=== PATIENT | male | born 1945 | race Caucasian/White ===

== ENCOUNTER 2017-02-06 22:36 | Observation (INO) | payer MEDICARE, OTHER ==
[~2017-02-06] VITALS: Ht 185.4 cm; Wt 105.5 kg
[~2017-02-06 22:36] MED LIST: LISI-363 PO; RAPA8CAP PO
[2017-02-06 22:41] VITALS: BP 192/119; PULSE 92; RESP 20; TEMP 97.8; O2SAT 95
--- NOTE | 2017-02-06 23:29 | PD ---
HPI Chief Complaint: Complaint Time Seen by Provider: 23:13 Travel History International Travel<30 days: Yes Contact w/Intl Traveler<30days: Yes Name of Country Traveled to: [place] Traveled to known affect area: No History of Present Illness HPI Patient is a 71-year-old man who had retrograde cystoscopy done Friday which is 4 days ago and today he started having bleeding. Patient said he had retrograde cystoscopy because he had a little bit of bleeding a few days before and saw his doctor urologist. He had urine which was normal until this morning that was slightly red colored than it was clear that it was regular and then tonight it got severely dark red purple blood colored .. Patient comes in without complaint of abdominal pain without any dysuria just the blood colored urine. He feels a little bit more increased urgency to go. No flank pain no fevers no chills ..He has not seen his urologist for this bleeding episode. He is scheduled to have her TURPs procedure on the day after which is 4 days from today. In the ER he is not having any orthopnea, he is not short of breath, he is not dizzy and his vitals are within normal limits.No signs or symptoms of severe intravascular depletion nor anemia PFSH Past Medical History Diminished Hearing: No Genitourinary: Yes Hypertension: Yes Tetanus Vaccination: < 5 Years Influenza Vaccination: No Past Surgical History Genitourinary Surgery: Yes (PROSTATE SURGERY ) Social History Alcohol Use: No Tobacco Use: No Substance Use: No Allergies-Medications (Allergen,Severity, Reaction): Coded Allergies: penicillin G (Unverified Allergy, Mild, HIVES, 02/06/17) Reported Meds & Prescriptions Reported Meds & Active Scripts Active Levaquin (Levofloxacin) 500 Mg Tablet 500 Mg PO DAILY 5 Days Amlodipine (Amlodipine Besylate) 5 Mg Tab 5 Mg PO DAILY Hold if systolic BP < 110 Review of Systems Except as stated in HPI: all other systems reviewed are Neg Genitourinary: Positive: Urgency, Hematuria Physical Exam Narrative GENERAL: non toxic normal vitals not orthostatic not pale SKIN: Warm and dry. HEAD: Atraumatic. Normocephalic. EYES: Pupils equal and round. No scleral icterus. No injection or drainage. ENT: No nasal bleeding or discharge. Mucous membranes pink and moist. NECK: Trachea midline. No JVD. CARDIOVASCULAR: Regular rate and rhythm. RESPIRATORY: No accessory muscle use. Clear to auscultation. Breath sounds equal bilaterally. GASTROINTESTINAL: Abdomen soft, slight distended suprapubic but denies pain, ( feeling of need to urinate) non-tender, Hepatic and splenic margins not palpable. MUSCULOSKELETAL: Extremities without clubbing, cyanosis, or edema. No obvious deformities. NEUROLOGICAL: Awake and alert. No obvious cranial nerve deficits. Motor grossly within normal limits. Five out of 5 muscle strength in the arms and legs. Normal speech. PSYCHIATRIC: Appropriate mood and affect; insight and judgment normal. Data Data Last Documented VS Vital Signs Date Time Temp Pulse Resp B/P (MAP) Pulse Ox O2 Delivery O2 Flow Rate FiO2 02/07/17 04:44 72 18 144/83 (103) 95 Room Air 02/06/17 22:41 97.8 Orders Orders Urinalysis - C+S If Indicated (02/06/17 23:13) Complete Blood Count With Diff (02/06/17 23:19) Comprehensive Metabolic Panel (02/06/17 23:19) Prothrombin Time / Inr (Pt) (02/06/17 23:19) Lipase (02/06/17 23:19) Type And Screen (02/06/17 23:19) Urine Culture (02/06/17 23:10) Ceftriaxone Inj (Rocephin Inj) (02/07/17 00:00) Sodium Chlor 0.9% 1000 Ml Inj (Ns 1000 M (02/07/17 01:15) Complete Blood Count With Diff (02/07/17 02:26) Lidocaine 2% Jelly (Xylocaine 2% Jelly) (02/07/17 04:30) Bladder/Catheter Irrigation (02/07/17 04:26) Bladder/Catheter Irrigation (02/07/17 04:43) Urinary Catheter Management SHARONA.Q8H (02/07/17 04:48) Ceftriaxone Inj (Rocephin Inj) (02/07/17 23:00) Place In Observation (02/07/17 ) Vital Signs (Adult) Q4H (02/07/17 04:52) Activity Oob With Assistance (02/07/17 04:52) Intake + Output SHARONA.QSHIFT (02/07/17 04:52) Diet Regular Basic (02/07/17 Breakfast) Sodium Chlor 0.9% 1000 Ml Inj (Ns 1000 M (02/07/17 04:52) Sodium Chloride 0.9% Flush (Ns Flush) (02/07/17 05:00) Sodium Chloride 0.9% Flush (Ns Flush) (02/07/17 09:00) Ondansetron Inj (Zofran Inj) (02/07/17 05:00) Pharmacologic Contraindication (02/07/17 04:52) Acetaminophen (Tylenol) (02/07/17 05:00) Acetamin-Hydrocod 325-5 Mg ([place] 5-325 (02/07/17 05:00) Docusate Sodium-Senna (Andra-Colace) (02/07/17 09:00) Magnesium Hydroxide Liq (Milk Of Magnesi (02/07/17 05:00) Sennosides (Senokot) (02/07/17 05:00) Bisacodyl Supp (Dulcolax Supp) (02/07/17 05:00) Lactulose Liq (Lactulose Liq) (02/07/17 05:00) Consult Urology (02/07/17 ) Labs Laboratory Tests Test 02/06/17 23:10 02/06/17 23:25 02/07/17 02:20 Urine Color RED Urine Turbidity CLOUDY Urine pH 7.5 Urine Specific [place] 1.027 Urine Protein 300 OR GREATER mg/dL Urine Glucose (UA) 100 mg/dL Urine Ketones 40 mg/dL Urine Occult Blood LARGE Urine Nitrite POS Urine Bilirubin NEG Urine Leukocyte Esterase LARGE Urine RBC INNUM /hpf Urine WBC 9-14 /hpf Urine Squamous Epithelial Cells 0-5 /hpf Urine Bacteria NONE /hpf Microscopic Urinalysis Comment CULTURE INDICATED White Blood Count 8.7 TH/MM3 8.7 TH/MM3 Red Blood Count 5.19 MIL/MM3 4.77 MIL/MM3 Hemoglobin 15.1 GM/DL 14.1 GM/DL Hematocrit 46.7 % 43.0 % Mean Corpuscular Volume 89.9 FL 90.2 FL Mean Corpuscular Hemoglobin 29.2 PG 29.6 PG Mean Corpuscular Hemoglobin Concent 32.4 % 32.8 % Red Cell Distribution Width 11.7 % 11.6 % Platelet Count 292 TH/MM3 243 TH/MM3 Mean Platelet Volume 7.8 FL 8.1 FL Neutrophils (%) (Auto) 63.9 % 76.7 % Lymphocytes (%) (Auto) 22.4 % 15.1 % Monocytes (%) (Auto) 7.2 % 5.5 % Eosinophils (%) (Auto) 3.7 % 1.9 % Basophils (%) (Auto) 2.8 % 0.8 % Neutrophils # (Auto) 5.7 TH/MM3 6.6 TH/MM3 Lymphocytes # (Auto) 1.9 TH/MM3 1.3 TH/MM3 Monocytes # (Auto) 0.6 TH/MM3 0.5 TH/MM3 Eosinophils # (Auto) 0.3 TH/MM3 0.2 TH/MM3 Basophils # (Auto) 0.2 TH/MM3 0.1 TH/MM3 CBC Comment DIFF FINAL DIFF FINAL Differential Comment Prothrombin Time 10.8 SEC Prothromb Time International Ratio 1.1 RATIO Blood Urea Nitrogen 17 MG/DL Creatinine 1.40 MG/DL Random Glucose 155 MG/DL Total Protein 7.5 GM/DL Albumin 3.8 GM/DL Calcium Level 10.3 MG/DL Alkaline Phosphatase 73 U/L Aspartate Amino Transf (AST/SGOT) 31 U/L Alanine Aminotransferase (ALT/SGPT) 29 U/L Total Bilirubin 0.5 MG/DL Sodium Level 136 MEQ/L Potassium Level 3.7 MEQ/L Chloride Level 102 MEQ/L Carbon Dioxide Level 25.8 MEQ/L Anion Gap 8 MEQ/L Estimat Glomerular Filtration Rate 50 ML/MIN Lipase 135 U/L MDM Medical Decision Making Medical Screen Exam Complete: Yes Emergency Medical Condition: Yes Differential Diagnosis UTI Hematuria due to retrograde cystoscopy , bladder tumor other Narrative Course Patient's urine is visibly bloody and after some time he becomes unable to pass urine at all. Now appears his blood is causing clots in the outflow of his bladder . 3-way Fields is placed irrigation of fluid and clots are removed fluid is flushed in. Then removed with clots that come out. patient feels much relief ...I speak to the urologist at [facility] and admitted to Dr. Otero, also his regular Uro doctor Maximiliano is paged. Return call from his associate, who called back and I informed them that we will have to admit the patient to watch his bladder bleeding continue CBI upstairs inpt and have our own [facility] urologist see the patient.. patient is stable his hemoglobin went from 14-13 but he has no orthostatics signs of any significant anemia .. bleeding is slow and steady but continues, No indication for PRBC transfusion at this time . Diagnosis Primary Impression: Hematuria Qualified Codes: R31.0 - Gross hematuria Additional Impression: Urinary tract bacterial infections Admitting Information Admitting Physician Requests: Admit Patient Instructions: General Instructions, Hematuria (ED), Urinary Tract Infection in Men (ED) Scripts Levofloxacin (Levaquin) 500 Mg Tablet 500 MG PO DAILY for Infection for 5 Days, #5 TAB 0 Refills Prov: Prashanth Rand DO 02/07/17 Amlodipine (Amlodipine) 5 Mg Tab 5 MG PO DAILY for Blood Pressure Management, #30 TAB 0 Refills Hold if systolic BP < 110 Prov: Prashanth Rand DO 02/07/17 Yariel Shay MD Feb 06, 2017 23:29
[2017-02-06 23:33] LABS: BLOOD, URINE LARGE (NEG); GLUCOSE,URINE 100 mg/dL (NEG); KETONE, URINE 40 mg/dL (NEG); NITRITE,URINE POS (NEG); PH, URINE 7.5 (5.0-8.5)
[2017-02-06] MEDS ORDERED: LISI-515 PO (23:34)
[2017-02-06 23:36] LABS: AUTOMATED NEUTROPHIL # 5.7 TH/MM3 (1.8-7.7); BASOPHIL # 0.2 TH/MM3 (0-0.2); BASOPHIL % 2.8 % (0.0-2.0); EOSINOPHIL # 0.3 TH/MM3 (0-0.4); EOSINOPHIL % 3.7 % (0.0-4.0); HEMATOCRIT 46.7 % (39.0-51.0); HEMO FLAGS DIFF FINAL; LYMPH % 22.4 % (9.0-44.0); LYMPHOCYTE # 1.9 TH/MM3 (1.0-4.8); MEAN CELL VOLUME 89.9 FL (80.0-100.0); MEAN CORPUSCULAR HEMOGLOBIN 29.2 PG (27.0-34.0); MEAN CORPUSCULAR HGB CONC 32.4 % (32.0-36.0); MONO % 7.2 % (0.0-8.0); NEUT % 63.9 % (16.0-70.0); PLATELET COUNT 292 TH/MM3 (150-450); RED BLOOD COUNT 5.19 MIL/MM3 (4.50-5.90); RED CELL DISTRIBUTION WIDTH 11.7 % (11.6-17.2); WHITE BLOOD COUNT 8.7 TH/MM3 (4.0-11.0)
[2017-02-06 23:36] LABS: COMMENT (UR) CULTURE INDICATED; CULTURE IF INDICATED CULTURE INDICATED; RBC, URINE INNUM /hpf (0-3); SQUAMOUS EPITHELIAL CELL URINE 0-5 /hpf (0-5); URINE COLOR RED (YELLW/STRAW)
[2017-02-06 23:47] VITALS: BP 141/92; PULSE 76; RESP 18; O2SAT 97
[2017-02-06 23:47] LABS: CHLORIDE 102 MEQ/L (98-107); POTASSIUM 3.7 MEQ/L (3.5-5.1); SODIUM (NA) 136 MEQ/L (136-145)
[2017-02-06 23:51] LABS: ANION GAP 8 MEQ/L (5-15); BICARBONATE 25.8 MEQ/L (21.0-32.0); BLOOD UREA NITROGEN 17 MG/DL (7-18); INTERNATIONAL NORMALIZED RATIO 1.1 RATIO; PROTHROMBIN TIME - PATIENT 10.8 SEC (9.8-11.6)
[2017-02-06 23:53] LABS: ALT (GPT) 29 U/L (12-78); AST (GOT) 31 U/L (15-37); GLOMERULAR FILTRATION RATE 50 ML/MIN (>89)
[2017-02-06 23:55] LABS: TOTAL BILIRUBIN ADULT 0.5 MG/DL (0.2-1.0)
[2017-02-06 23:56] LABS: ALKALINE PHOSPHATASE 73 U/L (45-117)
[2017-02-07] VITALS (9 sets, daily range): BP systolic 122–213; BP diastolic 73–109; PULSE 63–82; RESP 17–20; TEMP 96.2–98.4; O2SAT 94–96
[2017-02-07] MEDS ORDERED: cefTRIAXone INJ 1,000 MG in SODIUM CHLORIDE 0.9% INJ 100 ML IV ONE ×2
[2017-02-07] MEDS ORDERED: LEVA750T9 PO (00:58)
[2017-02-07] MEDS ORDERED: SODIUM CHLOR 0.9% 1000 ML INJ 1,000 ML IV ONE (01:15)
[2017-02-07 02:43] LABS: AUTOMATED NEUTROPHIL # 6.6 TH/MM3 (1.8-7.7); BASOPHIL # 0.1 TH/MM3 (0-0.2); BASOPHIL % 0.8 % (0.0-2.0); EOSINOPHIL # 0.2 TH/MM3 (0-0.4); EOSINOPHIL % 1.9 % (0.0-4.0); LYMPH % 15.1 % (9.0-44.0); LYMPHOCYTE # 1.3 TH/MM3 (1.0-4.8); MEAN CELL VOLUME 90.2 FL (80.0-100.0); MEAN CORPUSCULAR HEMOGLOBIN 29.6 PG (27.0-34.0); MEAN CORPUSCULAR HGB CONC 32.8 % (32.0-36.0); MONO % 5.5 % (0.0-8.0); NEUT % 76.7 % (16.0-70.0); PLATELET COUNT 243 TH/MM3 (150-450); RED BLOOD COUNT 4.77 MIL/MM3 (4.50-5.90); RED CELL DISTRIBUTION WIDTH 11.6 % (11.6-17.2); WHITE BLOOD COUNT 8.7 TH/MM3 (4.0-11.0)
[2017-02-07 02:44] LABS: HEMO FLAGS DIFF FINAL
[2017-02-07] MEDS ORDERED: LIDOCAINE 2% JELLY 30 ML TUBE TOPICAL ONE (04:30)
[2017-02-07] MEDS ORDERED: ACETAMINOPHEN 325 MG TAB PO PRN (05:00)
[2017-02-07] MEDS ORDERED: LACTULOSE SYRUP 20 GM/30 ML CUP PO PRN (05:00)
[2017-02-07] MEDS ORDERED: MORPHINE SULFATE 2 MG/ML INJ IV PUSH PRN (05:00)
[2017-02-07] MEDS ORDERED: ONDANSETRON HCL 4 MG/2 ML VIAL IVP PRN (05:00)
[2017-02-07] MEDS ORDERED: SODIUM CHLORIDE 0.9% FLUSH 10 ML FLUSH IV FLUSH PRN (05:00)
[2017-02-07] MEDS ORDERED: BISACODYL 10 MG SUPP RECTAL PRN (05:00)
[2017-02-07] MEDS ORDERED: SENNOSIDES 8.6 MG TAB PO PRN (05:00)
[2017-02-07] MEDS ORDERED: MAGNESIUM HYDROXIDE SUSP 30 ML CUP PO PRN (05:00)
[2017-02-07] MEDS ORDERED: ACETAMINOPHEN/HYDROcodone 325 MG/5 MG TAB PO PRN (05:00)
[2017-02-07] MEDS: SODIUM CHLOR 0.9% 1000 ML INJ 1,000 ML IV SCH ×2 (06:46→12:22)
[2017-02-07] MEDS ORDERED: DOCUSATE SODIUM 50 MG/SENNA 8.6 MG TAB PO SCH (09:00)
[2017-02-07] MEDS ORDERED: SODIUM CHLORIDE 0.9% FLUSH 10 ML FLUSH IV FLUSH SCH (09:00)
--- NOTE | 2017-02-07 15:23 | HHI.HP ---
[facility] Service [facility] Primary Care Physician Vinh Varghese MD Admission Diagnosis HEMATURIA Diagnoses: Chief Complaint: Hematuria. Travel History International Travel<30 Days: Yes Contact w/Intl Traveler <30 Da: Yes Name of Country Traveled to: [place], [place] Traveled to Known Affected Are: No History of Present Illness Mr. Clark is a pleasant 71-year-old male with a history of benign prostatic hyperplasia who underwent retrograde cystoscopy on 02/03/2017 who presents to the emergency department today due to hematuria. He denies any abdominal pain or dysuria. Patient denies any chest pain, shortness of breath, fever or chills. He is scheduled for cystoscopy and TURP on Friday, 2016. He is currently doing well eating lunch. He is waiting to see his urologist. Review of Systems Except as stated in HPI: all other systems reviewed are Neg Past Family Social History Past Medical History Benign prostatic hyperplasia Hypertension Past Surgical History No major surgery in the past Reported Medications Lisinopril 20 mg by mouth daily Allergies: Coded Allergies: penicillin G (Unverified Allergy, Mild, HIVES, 02/06/17) Family History No family history of cancer, Alzheimer's dementia or Parkinson's Social History Patient does not use alcohol, tobacco or illicit drugs. Physical Exam Vital Signs Vital Signs Date Time Temp Pulse Resp B/P (MAP) Pulse Ox O2 Delivery O2 Flow Rate FiO2 02/07/17 12:00 96.2 64 17 136/84 (101) 96 02/07/17 08:00 97.5 63 17 122/73 (89) 94 02/07/17 06:00 96.3 64 20 135/81 (99) 95 02/07/17 05:50 98.4 66 18 146/84 (104) 95 02/07/17 04:44 72 18 144/83 (103) 95 Room Air 02/07/17 04:00 73 18 186/107 (133) 96 Room Air 02/07/17 02:30 64 18 174/96 (122) 69 18 191/109 (136) 76 20 213/106 (141) 12/22/17 00:50 69 18 159/93 (115) 96 Room Air 02/06/17 23:47 76 18 141/92 (108) 97 Room Air 02/06/17 22:41 97.8 92 20 192/119 (143) 95 Physical Exam GENERAL: This is a well-nourished, well-developed patient, in no apparent distress. SKIN: No rashes, ecchymoses or lesions. Warm and dry. HEAD: Atraumatic. Normocephalic. No temporal or scalp tenderness. EYES: Pupils equal round and reactive. No injection or drainage. ENT: Nose without bleeding, purulent drainage or septal hematoma. Airway patent. NECK: Trachea midline. No lymphadenopathy. Supple, nontender, no meningeal signs. CARDIOVASCULAR: Regular rate and rhythm without murmurs, gallops, or rubs. No JVD. RESPIRATORY: Clear to auscultation. Breath sounds equal bilaterally. No wheezes , rales, or rhonchi. GASTROINTESTINAL: Abdomen soft, non-tender, nondistended. No guarding. Fields catheter in place. MUSCULOSKELETAL: Extremities without clubbing, cyanosis, or edema. NEUROLOGICAL: Awake and alert. Cranial nerves II through XII intact. No focal neurological deficits. Normal speech. Laboratory Laboratory Tests Test 02/06/17 23:10 02/06/17 23:25 02/07/17 02:20 Urine Color RED Urine Turbidity CLOUDY Urine pH 7.5 Urine Specific [place] 1.027 Urine Protein 300 OR GREATER Urine Glucose (UA) 100 Urine Ketones 40 Urine Occult Blood LARGE Urine Nitrite POS Urine Bilirubin NEG Urine Leukocyte Esterase LARGE Urine RBC INNUM Urine WBC 9-14 Urine Squamous Epithelial Cells 0-5 Urine Bacteria NONE Microscopic Urinalysis Comment CULTURE INDICATED White Blood Count 8.7 8.7 Red Blood Count 5.19 4.77 Hemoglobin 15.1 14.1 Hematocrit 46.7 43.0 Mean Corpuscular Volume 89.9 90.2 Mean Corpuscular Hemoglobin 29.2 29.6 Mean Corpuscular Hemoglobin Concent 32.4 32.8 Red Cell Distribution Width 11.7 11.6 Platelet Count 292 243 Mean Platelet Volume 7.8 8.1 Neutrophils (%) (Auto) 63.9 76.7 Lymphocytes (%) (Auto) 22.4 15.1 Monocytes (%) (Auto) 7.2 5.5 Eosinophils (%) (Auto) 3.7 1.9 Basophils (%) (Auto) 2.8 0.8 Neutrophils # (Auto) 5.7 6.6 Lymphocytes # (Auto) 1.9 1.3 Monocytes # (Auto) 0.6 0.5 Eosinophils # (Auto) 0.3 0.2 Basophils # (Auto) 0.2 0.1 CBC Comment DIFF FINAL DIFF FINAL Differential Comment Prothrombin Time 10.8 Prothromb Time International Ratio 1.1 Blood Urea Nitrogen 17 Creatinine 1.40 Random Glucose 155 Total Protein 7.5 Albumin 3.8 Calcium Level 10.3 Alkaline Phosphatase 73 Aspartate Amino Transf (AST/SGOT) 31 Alanine Aminotransferase (ALT/SGPT) 29 Total Bilirubin 0.5 Sodium Level 136 Potassium Level 3.7 Chloride Level 102 Carbon Dioxide Level 25.8 Anion Gap 8 Estimat Glomerular Filtration Rate 50 Lipase 135 Date/Time Source Procedure Growth Status 02/06/17 23:10 Urine Clean Catch Urine Culture Pending Received Result Diagram: 02/07/170 02/06/17 9242 Caprini VTE Risk Assessment Caprini VTE Risk Assessment: No/Low Risk (score <= 1) Caprini Risk Assessment Model Point Value = 1 Point Value = 2 Point Value = 3 Point Value = 5 Age 41-60 Minor surgery BMI > 25 kg/m2 Swollen legs Varicose veins or History of unexplained or recurrent spontaneous Oral contraceptives or hormone replacement Sepsis (< 1 month) Serious lung disease, including pneumonia (< 1 month) Abnormal pulmonary function Acute myocardial infarction Congestive heart failure (< 1 month) History of inflammatory bowel disease Medical patient at bed rest Age 61-74 Arthroscopic surgery Major open surgery (> 45 min) Laparoscopic surgery (> 45 min) Malignancy Confined to bed (> 72 hours) Immobilizing plaster cast Central venous access Age >= 75 History of VTE Family history of VTE Factor V Leiden Prothrombin [id number] Lupus anticoagulant Anticardiolipin antibodies Elevated serum homocysteine Heparin-induced thrombocytopenia Other congenital or acquired thrombophilia Stroke (< 1 month) Elective arthroplasty Hip, pelvis, or leg fracture Acute spinal cord injury (< 1 month) Prophylaxis Regimen Total Risk Factor Score Risk Level Prophylaxis Regimen 0-1 Low Early ambulation 2 Moderate Order ONE of the following: *Sequential Compression Device (SCD) *Heparin 5000 units SQ BID 3-4 Higher Order ONE of the following medications: *Heparin 5000 units SQ TID *Enoxaparin/Lovenox 40 mg SQ daily (WT < 150 kg, CrCl > 30 mL/min) *Enoxaparin/Lovenox 30 mg SQ daily (WT < 150 kg, CrCl > 10-29 mL/min) *Enoxaparin/Lovenox 30 mg SQ BID (WT < 150 kg, CrCl > 30 mL/min) AND/OR *Sequential Compression Device (SCD) 5 or more Highest Order ONE of the following medications: *Heparin 5000 units SQ TID (Preferred with Epidurals) *Enoxaparin/Lovenox 40 mg SQ daily (WT < 150 kg, CrCl > 30 mL/min) *Enoxaparin/Lovenox 30 mg SQ daily (WT < 150 kg, CrCl > 10-29 mL/min) *Enoxaparin/Lovenox 30 mg SQ BID (WT < 150 kg, CrCl > 30 mL/min) AND *Sequential Compression Device (SCD) Assessment and Plan Problem List: (1) Benign prostatic hyperplasia ICD Code: N40.0 - Benign prostatic hyperplasia without lower urinary tract symptoms (2) Hematuria ICD Code: R31.9 - Hematuria, unspecified Status: Acute Assessment and Plan Mr. Dockery is a 71-year-old male with a history of BPH who presents to the emergency department on 02/06/2017 due to painless hematuria. Patient recently underwent cystoscopy. He denies any dysuria, fever or chills. He does any abdominal pain. - Benign prostatic hyperplasia - Painless hematuria - Urology provided instruction to the nursing staff. Patient is currently undergoing bladder irrigation. - Urology who will evaluate patient today. - Since patient recently had cystoscopy, we'll continue to provide ceftriaxone 1 g every 24 hours. - Hypertension - currently normotensive. Patient usually takes lisinopril 20 mg daily. We'll hold off lisinopril for now. - Probable chronic kidney disease - creatinine 1.40 today. Last creatinine was 1.27 in January 2013. - Hold lisinopril for now. Creatinine can be monitored in the outpatient setting. - If blood pressure elevates, we'll consider amlodipine for hypertension. Full code. Ambulation. No pharmacological DVT prophylaxis due to hematuria. Discharge plan: If urologic cares for discharge patient can be discharged this afternoon or evening. Problem Qualifiers (1) Hematuria: Qualified Codes: R31.0 - Gross hematuria Prashanth Rand DO Feb 07, 2017 3:23 pm
[2017-02-07] MEDS ORDERED: AMLO5TAB2 PO (15:31)
[2017-02-07] MEDS ORDERED: LEVA500T33 PO (15:35)
--- NOTE | 2017-02-07 17:56 | HHI.PR ---
Subjective Patient symptoms today -Patient doing well -Catheter changed to 22Fr; Draining well, light red -Patient without pain -He has scheduled appt with his Urologist next week -Maintain castellano catheter in place until his follow-up appt -Please call with questions Objective Vital Signs Vital Signs Date Time Temp Pulse Resp B/P (MAP) Pulse Ox O2 Delivery O2 Flow Rate FiO2 02/07/17 16:00 97.5 82 17 169/78 (108) 96 02/07/17 12:00 96.2 64 17 136/84 (101) 96 02/07/17 08:00 97.5 63 17 122/73 (89) 94 02/07/17 06:00 96.3 64 20 135/81 (99) 95 02/07/17 05:50 98.4 66 18 146/84 (104) 95 02/07/17 04:44 72 18 144/83 (103) 95 Room Air 02/07/17 04:00 73 18 186/107 (133) 96 Room Air 02/07/17 02:30 64 18 174/96 (122) 69 18 191/109 (136) 76 20 213/106 (141) 02/07/17 00:50 69 18 159/93 (115) 96 Room Air 02/06/17 23:47 76 18 141/92 (108) 97 Room Air 02/06/17 22:41 97.8 92 20 192/119 (143) 95 Intake & Output 02/07/17 02/07/17 07:00 19:00 Intake Total 1100 ml 960 ml Output Total 850 ml 1150 ml Balance 250 ml -190 ml Intake Oral 960 ml IV Total 1100 ml Output Urine Total 850 ml 1150 ml # Voids 2 # Bowel Movements 0 Result Diagram: 02/07/1721902/06/17 3612 Medications and IVs Current Medications Medications (Trade) Dose Ordered Sig/[place] Route Start Time Stop Time Status Last Admin Ceftriaxone Sodium 1000 mg/ Sodium Chloride 100 ml @ 200 mls/hr Q24H IV 02/07/17 23:00 Sodium Chloride 1,000 ml @ 100 mls/hr Q10H IV 02/07/17 04:52 02/07/17 12:22 (NS Flush) 2 ml UNSCH PRN IV FLUSH 02/07/17 05:00 (NS Flush) 2 ml BID IV FLUSH 02/07/17 09:00 02/07/17 09:02 (Zofran Inj) 4 mg Q6H PRN IVP 02/07/17 05:00 (Tylenol) 650 mg Q6H PRN PO 02/07/17 05:00 ([place] 5-325 Mg) 1 tab Q4H PRN PO 02/07/17 05:00 (Morphine Inj) 2 mg Q3H PRN IV PUSH 02/07/17 05:00 (Andra-Colace) 1 tab BID PO 02/07/17 09:00 02/07/17 09:01 (Milk Of Magnesia Liq) 30 ml Q12H PRN PO 02/07/17 05:00 (Senokot) 17.2 mg Q12H PRN PO 02/07/17 05:00 (Dulcolax Supp) 10 mg DAILY PRN RECTAL 02/07/17 05:00 (Lactulose Liq) 30 ml DAILY PRN PO 02/07/17 05:00 Jj Veloz MD Feb 07, 2017 17:56
[2017-02-07] MEDS ORDERED: cefTRIAXone INJ 1,000 MG in SODIUM CHLORIDE 0.9% INJ 100 ML IV SCH (23:00)
== END 2017-02-07 18:45 | disposition home or self-care (01) ==
LOC: PHED 22:36 → PHEDA 02-07 04:56 → INTOOBSV 02-07 04:56 → PH3A 02-07 05:50
PROVIDERS: ADMIT Hospitalist; ATTEND Hospitalist
DX: R31.0 Gross hematuria (principal); N40.0 Benign prostatic hyperplasia without lower urinary tract symptoms; I10 Essential (primary) hypertension
CPT/HCPCS: 51702; 80053; 81001; 83690; 85025; 85610; 86850; 86900; 86901; 87086; 96361; 96365; 99285; G0378; J0696; J7030